=== PATIENT | male | born 1975 | race Caucasian/White ===

== ENCOUNTER 2018-10-30 20:19 | Emergency (ER) | payer MEDICAID ==
[~2018-10-30] VITALS: Ht 170.2 cm; Wt 77.1 kg
[2018-10-30 20:25] VITALS: BP_SYST 131
--- NOTE | 2018-10-30 21:29 | NUR ---
Patient to ER bed 2 to gown for evaluation. Side rails up. Report given to Tommie WATTS.
--- NOTE | 2018-10-30 22:00 | NUR ---
Dr. Hilliard bedside for Pt Eval
--- NOTE | 2018-10-30 22:10 | NUR ---
Pt BIB family to ED C/O gradually worsening redness and swelling to the left face cheek that developed over the past 2 days. Symptoms are moderate with no alleviating factors. The patient reports he slept on the floor 2 days ago and woke up with multiple insect bites on his left cheek and chin. No other injuries and or complaints noted. VSS no s/s of acute distress. Resting on gurney rails up
[2018-10-30] MEDS ORDERED: PIPERACILLIN/TAZO 3.375 GM in NS 50 ML IV ONE (22:15)
[2018-10-30] MEDS ORDERED: NACL 0.9% 1,000 ML IV ONE (22:15)
[2018-10-30] MEDS ORDERED: CLINDAMYCIN 600 mg/50mL D5W 50 ML IV ONE (22:15)
[2018-10-30] MEDS ORDERED: PIPERACILLIN/TAZOBACTAM 3.375 GM/VIAL (ZOSYN) IV ONE (22:30)
--- NOTE | 2018-10-30 22:52 | NUR ---
Pt taken to Radiology in stable condition
[2018-10-30 23:16] LABS: INR 0.9 (0.80-1.20); PROTHROMBIN TIME 9.1 SECS (9.5-12.5)
[2018-10-30 23:28] LABS: ALBUMIN 3.8 g/dL (3.4-4.8); CALCIUM 9.3 mg/dL (8.4-11.0); CREATININE 1.02 mg/dL (0.55-1.30); POTASSIUM 4.2 mmol/L (3.5-5.1); TOTAL BILIRUBIN 0.3 mg/dL (0.0-1.0)
[2018-10-30 23:44] LABS: BASOPHILS % (AUTO) 0.5 % (0.0-2.0); EOSINOPHILS # (AUTO) 0.1 K/uL (0.0-0.4); EOSINOPHILS % (AUTO) 1.7 % (0.0-4.0); HEMATOCRIT 46.9 % (36-54); HEMOGLOBIN 15.8 g/dL (14.0-18.0); LYMPHOCYTES # (AUTO) 2.2 K/uL (1.0-5.5); LYMPHOCYTES % (AUTO) 28.6 % (20.5-51.5); MEAN CORPUSCULAR HEMOGLOBIN 32 pg (27-31); MEAN CORPUSCULAR HGB CONC 34 % (32-36); MEAN CORPUSCULAR VOLUME 95 fL (79.0-98.0); MONOCYTES # (AUTO) 0.8 K/uL (0.0-1.0); MONOCYTES % (AUTO) 10.4 % (1.7-9.3); NEUTROPHILS # (AUTO) 4.6 K/uL (1.8-7.7); NEUTROPHILS % (AUTO) 58.8 % (40.0-70.0); PLATELET COUNT (AUTO) 220 K/uL (130-430); RED BLOOD CELL COUNT(AUTO) 4.93 MIL/uL (4.2-6.2); RED CELL DISTRIBUTION WIDTH 12.8 % (9.0-15.0); WHITE BLOOD COUNT (AUTO) 7.8 K/uL (4.8-10.8)
--- NOTE | 2018-10-31 | NUR ---
Dr. Hilliard bedside to Update Pt
[2018-10-31 00:35] VITALS: BP_SYST 131
--- NOTE | 2018-10-31 00:35 | NUR ---
Patient given written and verbal discharge instructions and verbalizes understanding. ER MD discussed with patient the results and treatment provided. Patient in stable condition. ID arm band removed. IV catheter removed intact and dressing applied, no active bleeding. Rx of Augumentin Flagyl given. Patient educated on pain management and to follow up with PMD. Pain Scale 0/10 Opportunity for questions provided and answered. Medication side effect fact sheet provided.
[2018-11-01] MEDS ORDERED: METR-154 PO (16:54)
[2018-11-01] MEDS ORDERED: AMOX-423 PO (16:55)
== END 2018-10-31 00:35 | disposition home or self-care (01) ==
LOC: SED 20:19
DX: H60.12 Cellulitis of left external ear (principal)
CPT/HCPCS: 36415; 70486; 80053; 83605; 85025; 85610; 85730; 87040; 93005; 96365; 96368; 99284; J2543; J3490; J7030

== ENCOUNTER 2018-11-01 12:46 | Inpatient (IN) | payer MEDICAID ==
[~2018-11-01] VITALS: Ht 170.2 cm; Wt 77.1 kg
[2018-11-01 13:13] VITALS: BP_SYST 140
[2018-11-01] MEDS ORDERED: cefTRIAXone 1 GM IVPB PREMIX 50 ML IV ONE (14:30)
[2018-11-01] MEDS ORDERED: MORPHINE 4 MG/ML INJ. SYRINGE IVP ONE (14:30)
[2018-11-01 14:50] LABS: BASOPHILS % (AUTO) 0.5 % (0.0-2.0); EOSINOPHILS # (AUTO) 0.1 K/uL (0.0-0.4); EOSINOPHILS % (AUTO) 1.6 % (0.0-4.0); HEMATOCRIT 47.4 % (36-54); HEMOGLOBIN 15.9 g/dL (14.0-18.0); LYMPHOCYTES # (AUTO) 2.2 K/uL (1.0-5.5); LYMPHOCYTES % (AUTO) 30.1 % (20.5-51.5); MEAN CORPUSCULAR HEMOGLOBIN 32 pg (27-31); MEAN CORPUSCULAR HGB CONC 34 % (32-36); MEAN CORPUSCULAR VOLUME 95 fL (79.0-98.0); MONOCYTES # (AUTO) 0.7 K/uL (0.0-1.0); MONOCYTES % (AUTO) 10.1 % (1.7-9.3); NEUTROPHILS # (AUTO) 4.3 K/uL (1.8-7.7); NEUTROPHILS % (AUTO) 57.7 % (40.0-70.0); PLATELET COUNT (AUTO) 225 K/uL (130-430); RED BLOOD CELL COUNT(AUTO) 5.02 MIL/uL (4.2-6.2); RED CELL DISTRIBUTION WIDTH 12.8 % (9.0-15.0); WHITE BLOOD COUNT (AUTO) 7.4 K/uL (4.8-10.8)
[2018-11-01 15:49] LABS: BILIRUBIN,URINE NEGATIVE (NEGATIVE); BLOOD, URINE NEGATIVE (NEGATIVE); CLARITY/URINE CLEAR (CLEAR); COLOR,URINE YELLOW (YELLOW); GLUCOSE,URINE NEGATIVE (NEGATIVE); KETONES,URINE NEGATIVE (NEGATIVE); LEUKOCYTE ESTERASE ,URINE NEGATIVE (NEGATIVE); NITRITE, URINE NEGATIVE (NEGATIVE); PH,URINE 6.5 (5.0-8.0); PROTEIN URINE NEGATIVE (NEGATIVE); UROBILINOGEN,URINE 0.2 (0.2-1.0)
[2018-11-01 15:49] LABS: CREATININE 0.87 mg/dL (0.55-1.30); POTASSIUM 4.1 mmol/L (3.5-5.1)
[2018-11-01 15:56] LABS: ALBUMIN 3.8 g/dL (3.4-4.8); TOTAL BILIRUBIN 0.2 mg/dL (0.0-1.0)
[2018-11-01] MEDS ORDERED: METR-154 PO (16:54)
[2018-11-01] MEDS ORDERED: AMOX-423 PO (16:55)
[2018-11-01 17:23] VITALS: BP_SYST 131
[2018-11-01] MEDS ORDERED: VANCOMYCIN HCL 1 GM/NS PREMIX 250 ML IV ONE ×2 (17:45)
[2018-11-01] MEDS ORDERED: ACETAMINOPHEN 325 MG TABLET PO PRN ×2 (17:45)
[2018-11-01 18:00] VITALS: BP_SYST 131
[2018-11-01 20:00] VITALS: BP_SYST 149
[2018-11-02 00:57] VITALS: BP_SYST 128
[2018-11-02] MEDS: HYDROcodone/ACETAMIN 5-325 MG TAB (NORCO/ VICODIN) PO PRN ×2 (01:37→20:26)
[2018-11-02 06:21] LABS: BASOPHILS % (AUTO) 0.5 % (0.0-2.0); EOSINOPHILS # (AUTO) 0.1 K/uL (0.0-0.4); EOSINOPHILS % (AUTO) 1.7 % (0.0-4.0); HEMATOCRIT 44.4 % (36-54); HEMOGLOBIN 15.1 g/dL (14.0-18.0); LYMPHOCYTES # (AUTO) 2.8 K/uL (1.0-5.5); LYMPHOCYTES % (AUTO) 36.7 % (20.5-51.5); MEAN CORPUSCULAR HEMOGLOBIN 32 pg (27-31); MEAN CORPUSCULAR HGB CONC 34 % (32-36); MEAN CORPUSCULAR VOLUME 95 fL (79.0-98.0); MONOCYTES # (AUTO) 0.8 K/uL (0.0-1.0); MONOCYTES % (AUTO) 10.9 % (1.7-9.3); NEUTROPHILS # (AUTO) 3.8 K/uL (1.8-7.7); NEUTROPHILS % (AUTO) 50.2 % (40.0-70.0); PLATELET COUNT (AUTO) 227 K/uL (130-430); RED BLOOD CELL COUNT(AUTO) 4.69 MIL/uL (4.2-6.2); RED CELL DISTRIBUTION WIDTH 12.6 % (9.0-15.0); WHITE BLOOD COUNT (AUTO) 7.6 K/uL (4.8-10.8)
[2018-11-02 06:26] LABS: CALCIUM 8.7 mg/dL (8.4-11.0); CREATININE 0.95 mg/dL (0.55-1.30)
[2018-11-02 07:59] VITALS: BP_SYST 126
[2018-11-02] MEDS: FAMOTIDINE 20 MG TABLET PO SCH (08:40)
[2018-11-02] MEDS: IBUPROFEN 400 MG TABLET PO PRN ×2 (08:41→22:33)
[2018-11-02] MEDS ORDERED: FAMOTIDINE 20 MG TABLET PO SCH (09:00)
[2018-11-02] MEDS ORDERED: PEG 400/HYPROMELLOSE/GLYCERIN 15 ML DROPS OP ONE (11:00)
[2018-11-02] MEDS ORDERED: ACYCLOVIR IV 500 MG in D5W 100 ML IV ONE (12:00)
[2018-11-02 12:30] VITALS: BP_SYST 122
[2018-11-02 12:59] VITALS: BP_SYST 126
[2018-11-02] MEDS: ceFAZolin SODIUM 1 GM in D5W 50 ML IV SCH ×2 (14:07→22:33)
[2018-11-02] MEDS: PEG 400/HYPROMELLOSE/GLYCERIN 15 ML DROPS OP SCH ×2 (17:53→23:09)
[2018-11-02 21:15] VITALS: BP_SYST 137
[2018-11-02] MEDS: ACYCLOVIR IV 500 MG in D5W 100 ML IV SCH (23:12)
[2018-11-03 01:58] VITALS: BP_SYST 130
[2018-11-03 06:07] LABS: VARICELLA ZOSTER IgG >4000 index (Immune >165)
[2018-11-03] MEDS: ceFAZolin SODIUM 1 GM in D5W 50 ML IV SCH ×2 (06:10→13:17)
[2018-11-03] MEDS: ACYCLOVIR IV 500 MG in D5W 100 ML IV SCH ×2 (06:48→13:26)
[2018-11-03 07:12] LABS: ANTI-STREPTOLYSIN O AB 60.8 IU/mL (0.0-200.0)
[2018-11-03 08:00] VITALS: BP_SYST 145
[2018-11-03] MEDS: FAMOTIDINE 20 MG TABLET PO SCH (08:45)
[2018-11-03] MEDS: PEG 400/HYPROMELLOSE/GLYCERIN 15 ML DROPS OP SCH ×2 (08:45→13:18)
[2018-11-03 12:56] VITALS: BP_SYST 131
[2018-11-03] MEDS: HYDROcodone/ACETAMIN 5-325 MG TAB (NORCO/ VICODIN) PO PRN (13:26)
[2018-11-03 15:53] VITALS: BP_SYST 137
[2018-11-03 17:00] VITALS: BP_SYST 139
== END 2018-11-03 16:25 | disposition home or self-care (01) | DRG 383 ==
LOC: SED 12:46 → SMU 16:17
PROVIDERS: ADMIT Internal Medicine; ATTEND Internal Medicine
DX: L03.211 Cellulitis of face (principal); B02.21 Postherpetic geniculate ganglionitis; B02.8 Zoster with other complications; L01.00 Impetigo, unspecified; L02.01 Cutaneous abscess of face
CPT/HCPCS: 36415; 71045; 80048; 80053; 81003; 83605; 85025; 86060; 86694; 86787; 87040-TC; 87086; 93005; J0133; J0690; J0696; J2270; J3370; J7060

== ENCOUNTER 2018-12-27 01:33 | Emergency (ER) | payer MEDICAID ==
[~2018-12-27] VITALS: Ht 170.2 cm; Wt 77.1 kg
[2018-12-27 01:40] VITALS: BP_SYST 144
--- NOTE | 2018-12-27 01:56 | NUR ---
Patient to ER bed 7 to gown for evaluation. Side rails up.
--- NOTE | 2018-12-27 02:05 | NUR ---
Dr. Desouza is at bedside speaking to pt.
--- NOTE | 2018-12-27 02:10 | NUR ---
Pt came to the ED for R eye redness and swelling. Reports discharge for the past 2 days. Denies severe pain, complaining of "discomfort." Denies n/v/d or fever. No other complaings/injuries noted. WIll cont. to monitor.
--- NOTE | 2018-12-27 02:11 | NUR ---
Dr. Desouza at bedside performing procedure with eye kit. Tolerated well. Will cont. to monitor.
[2018-12-27 02:47] VITALS: BP_SYST 144
--- NOTE | 2018-12-27 02:47 | NUR ---
Patient given written and verbal discharge instructions and verbalizes understanding. ER MD Dr. Desouza discussed with patient the results and treatment provided. Patient in stable condition. ID arm band removed. Rx of sulfacetamide, keflex, and patanol given. Patient educated on pain management and to follow up with PMD. Pain Scale 0/10. Opportunity for questions provided and answered. Medication side effect fact sheet provided.
== END 2018-12-27 02:47 | disposition home or self-care (01) ==
LOC: SED 01:33
DX: L03.213 Periorbital cellulitis (principal); H10.9 Unspecified conjunctivitis
CPT/HCPCS: 99283

== ENCOUNTER 2019-10-03 23:11 | Emergency (ER) | payer MEDICAID ==
[~2019-10-03] VITALS: Ht 170.2 cm; Wt 79.4 kg
[2019-10-03 23:25] VITALS: BP_SYST 101
[2019-10-04] MEDS ORDERED: LIDOCAINE 1% 10 MG/ML, 20 ML MDV INJ ONE (00:45)
[2019-10-04] MEDS ORDERED: NACL 0.9% 1,000 ML IV ONE (01:15)
[2019-10-04] MEDS ORDERED: MORPHINE 4 MG/ML INJ. SYRINGE IVP ONE (01:15)
[2019-10-04 01:54] LABS: BASOPHILS # (AUTO) 0.1 K/uL (0.0-0.2); BASOPHILS % (AUTO) 0.5 % (0.0-2.0); EOSINOPHILS # (AUTO) 0.1 K/uL (0.0-0.4); EOSINOPHILS % (AUTO) 0.7 % (0.0-4.0); HEMATOCRIT 45.1 % (36-54); LYMPHOCYTES # (AUTO) 3.1 K/uL (1.0-5.5); LYMPHOCYTES % (AUTO) 24.5 % (20.5-51.5); MEAN CORPUSCULAR HEMOGLOBIN 31 pg (27-31); MEAN CORPUSCULAR HGB CONC 33 % (32-36); MEAN CORPUSCULAR VOLUME 94 fL (79.0-98.0); MONOCYTES # (AUTO) 1.2 K/uL (0.0-1.0); MONOCYTES % (AUTO) 9.4 % (1.7-9.3); NEUTROPHILS # (AUTO) 8.1 K/uL (1.8-7.7); NEUTROPHILS % (AUTO) 64.9 % (40.0-70.0); PLATELET COUNT (AUTO) 269 K/uL (130-430); RED BLOOD CELL COUNT(AUTO) 4.81 MIL/uL (4.2-6.2); RED CELL DISTRIBUTION WIDTH 12.6 % (9.0-15.0); WHITE BLOOD COUNT (AUTO) 12.5 K/uL (4.8-10.8)
[2019-10-04 02:03] LABS: CALCIUM 9.5 mg/dL (8.4-11.0); CREATININE 0.98 mg/dL (0.55-1.30); POTASSIUM 3.9 mmol/L (3.5-5.1)
[2019-10-04] MEDS ORDERED: IOHEXOL 100 ML IV ONE (02:04)
[2019-10-04 03:31] VITALS: BP_SYST 115
== END 2019-10-04 03:31 | disposition home or self-care (01) ==
LOC: SED 23:11
DX: K61.0 Anal abscess (principal)
CPT/HCPCS: 36415; 46050; 74177; 80048; 83605; 85025; 96361; 96374; 99284; J7030; J2001; J2270; Q9967

== ENCOUNTER 2019-10-05 23:30 | Emergency (ER) | payer MEDICAID ==
[~2019-10-05] VITALS: Ht 170.2 cm; Wt 79.4 kg
[2019-10-05 23:35] VITALS: BP_SYST 152
[2019-10-06] MEDS ORDERED: cefTRIAXone 1 GM in LIDOCAINE 1%, 20 ML MDV 2.1 ML IM ONE (01:00)
[2019-10-06] MEDS ORDERED: MORPHINE 4 MG/ML INJ. SYRINGE IM ONE (01:00)
[2019-10-06 02:27] VITALS: BP_SYST 133
== END 2019-10-06 02:27 | disposition home or self-care (01) ==
LOC: SED 23:30
DX: L03.317 Cellulitis of buttock (principal)
CPT/HCPCS: 96372; 99284; J0696; J2001; J2270

== ENCOUNTER 2019-10-08 21:58 | Emergency (ER) | payer MEDICAID ==
[~2019-10-08] VITALS: Ht 170.2 cm; Wt 79.4 kg
[2019-10-08 22:30] VITALS: BP_SYST 129
== END 2019-10-09 02:35 | disposition left against medical advice (07) ==
LOC: SED 21:58
DX: K62.89 Other specified diseases of anus and rectum (principal); Z53.21 Procedure and treatment not carried out due to patient leaving prior to being seen by health care provider

== ENCOUNTER 2019-10-09 12:46 | Inpatient (IN) | payer MEDICAID, SELFPAY ==
[~2019-10-09] VITALS: Ht 170.2 cm; Wt 79.4 kg
[2019-10-09 13:03] VITALS: BP_SYST 123
[2019-10-09] MEDS ORDERED: VANCOMYCIN HCL 1,000 MG in D5W 250 ML IV ONE (13:15)
[2019-10-09] MEDS ORDERED: PIPERACILLIN/TAZO 3.38 GM in D5W 50 ML IV ONE (13:15)
[2019-10-09] MEDS ORDERED: fentaNYL CITRATE/PF 100 MCG/2 ML AMP IVP ONE (13:15)
[2019-10-09 13:52] LABS: BASOPHILS # (AUTO) 0.1 K/uL (0.0-0.2); BASOPHILS % (AUTO) 0.4 % (0.0-2.0); EOSINOPHILS # (AUTO) 0.1 K/uL (0.0-0.4); EOSINOPHILS % (AUTO) 0.4 % (0.0-4.0); HEMATOCRIT 40.6 % (36-54); HEMOGLOBIN 13.2 g/dL (14.0-18.0); LYMPHOCYTES # (AUTO) 2.4 K/uL (1.0-5.5); MEAN CORPUSCULAR HEMOGLOBIN 30 pg (27-31); MEAN CORPUSCULAR HGB CONC 33 % (32-36); MEAN CORPUSCULAR VOLUME 93 fL (79.0-98.0); MONOCYTES # (AUTO) 1.3 K/uL (0.0-1.0); MONOCYTES % (AUTO) 6.3 % (1.7-9.3); NEUTROPHILS # (AUTO) 16.2 K/uL (1.8-7.7); NEUTROPHILS % (AUTO) 80.9 % (40.0-70.0); PLATELET COUNT (AUTO) 322 K/uL (130-430); RED BLOOD CELL COUNT(AUTO) 4.36 MIL/uL (4.2-6.2); RED CELL DISTRIBUTION WIDTH 12.8 % (9.0-15.0)
[2019-10-09 14:15] LABS: PROTHROMBIN TIME 9.8 SECS (9.5-12.5)
[2019-10-09] MEDS ORDERED: PIPERACILLIN/TAZOBACTAM 3.375 GM/VIAL (ZOSYN) IV ONE (14:27)
[2019-10-09] MEDS ORDERED: VANCOMYCIN HCL 1000 MG/VIAL IV ONE (14:28)
[2019-10-09 14:48] LABS: CALCIUM 9.1 mg/dL (8.4-11.0); CREATININE 1.07 mg/dL (0.55-1.30); POTASSIUM 4.1 mmol/L (3.5-5.1)
[2019-10-09 14:53] LABS: ALBUMIN 2.7 g/dL (3.4-4.8); TOTAL BILIRUBIN 0.2 mg/dL (0.0-1.0)
[2019-10-09 15:09] LABS: C-REACTIVE PROTEIN QUANT 32.1 mg/dL (0-0.5)
[2019-10-09] MEDS ORDERED: NACL 0.9% 1,000 ML IV ONE (16:45)
[2019-10-09] MEDS ORDERED: MORPHINE 4 MG/ML INJ. SYRINGE IVP ONE (17:00)
[2019-10-09] MEDS ORDERED: ACETAMINOPHEN 325 MG TABLET PO PRN (17:15)
[2019-10-09] MEDS ORDERED: ONDANSETRON HCL 4 MG/2 ML VIAL IVP PRN (17:15)
[2019-10-09] MEDS ORDERED: ZOLPIDEM TARTRATE 5 MG TABLET PO PRN (17:15)
[2019-10-09] MEDS ORDERED: DOCUSATE SODIUM 100 MG CAPSULE PO PRN (17:15)
[2019-10-09] MEDS ORDERED: MAGNESIUM SULFATE 50 ML IV PRN (17:15)
[2019-10-09] MEDS ORDERED: LORazepam 2 MG/ML VIAL IVP PRN (17:15)
[2019-10-09] MEDS ORDERED: POTASSIUM CHLORIDE 20 MEQ TAB.PRT.SR PO PRN (17:15)
[2019-10-09] MEDS ORDERED: MUPIROCIN 2% TOPICAL OINTMENT 22 GM NS PRN (17:15)
[2019-10-09] MEDS ORDERED: D5NS 1,000 ML IV SCH (17:30)
[2019-10-09] MEDS ORDERED: ACETAMINOPHEN 500 MG TABLET PO ONE (17:30)
[2019-10-09] MEDS ORDERED: ACETAMINOPHEN 500 MG TABLET ONE (17:42)
[2019-10-09 19:10] VITALS: BP_SYST 115
[2019-10-09] MEDS: MORPHINE 2 MG/ML INJ. SYRINGE IVP PRN (20:23)
[2019-10-09] MEDS ORDERED: SEVOFLURANE 15 MIN GAS INH ONE (23:20)
[2019-10-09] MEDS ORDERED: PROPOFOL 200MG/ 20ML VIAL (DIPRIVAN) IV ONE (23:20)
[2019-10-09] MEDS ORDERED: KETOROLAC TROMETHAMINE 30 MG VIAL IVP ONE (23:20)
[2019-10-09] MEDS ORDERED: LIDOCAINE 1% 10 MG/ML, 20 ML MDV INJ ONE (23:20)
[2019-10-09] MEDS ORDERED: NEOSTIGMINE METHYLSULFATE 1 MG/ML, 10 ML VIAL IVP ONE (23:20)
[2019-10-09] MEDS ORDERED: METOCLOPRAMIDE HCL 10 MG/2 ML VIAL IVP ONE (23:20)
[2019-10-09] MEDS ORDERED: CEFAZOLIN 2 GM IVPB PREMIX 50 ML IV ONE (23:20)
[2019-10-09] MEDS ORDERED: fentaNYL CITRATE 250 MCG/5 ML AMP IV ONE (23:20)
[2019-10-09] MEDS ORDERED: NS IRRIG SOLN 1000 ML IR ONE (23:20)
[2019-10-09] MEDS ORDERED: ISOFLURANE 15 MIN GAS INH ONE (23:20)
[2019-10-09] MEDS ORDERED: D5/0.45 NS 1,000 ML IV.SOLN IV ONE (23:20)
[2019-10-09] MEDS ORDERED: ONDANSETRON HCL 4 MG/2 ML VIAL IVP ONE (23:20)
[2019-10-09] MEDS ORDERED: SUCCINYLCHOLINE CHLORIDE 20 MG/ML(QUELICIN) IVP ONE (23:20)
[2019-10-10] MEDS ORDERED: 0.45% NACL 1,000 ML IV SCH (00:13)
[2019-10-10] MEDS ORDERED: ONDANSETRON HCL 4 MG/2 ML VIAL IVP PRN (00:15)
[2019-10-10] MEDS ORDERED: HYDROmorphone 1 MG INJ. 1 MG/ML AMPUL IVP PRN (00:15)
[2019-10-10] MEDS ORDERED: KETOROLAC TROMETHAMINE 30 MG VIAL IVP PRN ×3 (00:15)
[2019-10-10] MEDS ORDERED: D5NS 1,000 ML IV SCH (00:30)
[2019-10-10] MEDS: MORPHINE 2 MG/ML INJ. SYRINGE IVP PRN ×3 (04:20→15:26)
[2019-10-10 06:37] LABS: BASOPHILS % (AUTO) 0.2 % (0.0-2.0); EOSINOPHILS % (AUTO) 0.3 % (0.0-4.0); HEMATOCRIT 37.4 % (36-54); HEMOGLOBIN 12.4 g/dL (14.0-18.0); LYMPHOCYTES # (AUTO) 1.7 K/uL (1.0-5.5); MEAN CORPUSCULAR HEMOGLOBIN 31 pg (27-31); MEAN CORPUSCULAR HGB CONC 33 % (32-36); MEAN CORPUSCULAR VOLUME 93 fL (79.0-98.0); MONOCYTES # (AUTO) 1.3 K/uL (0.0-1.0); MONOCYTES % (AUTO) 8.4 % (1.7-9.3); NEUTROPHILS # (AUTO) 12.1 K/uL (1.8-7.7); NEUTROPHILS % (AUTO) 80.1 % (40.0-70.0); PLATELET COUNT (AUTO) 294 K/uL (130-430); RED BLOOD CELL COUNT(AUTO) 4.03 MIL/uL (4.2-6.2); RED CELL DISTRIBUTION WIDTH 12.6 % (9.0-15.0); WHITE BLOOD COUNT (AUTO) 15.1 K/uL (4.8-10.8)
[2019-10-10 07:46] LABS: CALCIUM 8.7 mg/dL (8.4-11.0); CREATININE 0.9 mg/dL (0.55-1.30); POTASSIUM 3.7 mmol/L (3.5-5.1)
[2019-10-10 08:00] VITALS: BP_SYST 120
[2019-10-10] MEDS: DOCUSATE SODIUM 100 MG CAPSULE PO SCH ×2 (08:48→20:38)
[2019-10-10 11:33] VITALS: BP_SYST 106
[2019-10-10] MEDS ORDERED: VANCOMYCIN HCL 1,000 MG in NS 250 ML IV SCH (14:00)
[2019-10-10 16:02] VITALS: BP_SYST 118
[2019-10-10] MEDS: HYDROcodone/ACETAMIN 5-325 MG TAB (NORCO/ VICODIN) PO PRN (20:38)
[2019-10-11 01:06] VITALS: BP_SYST 109
[2019-10-11] MEDS: MORPHINE 2 MG/ML INJ. SYRINGE IVP PRN (01:32)
[2019-10-11 07:05] LABS: BASOPHILS % (AUTO) 0.2 % (0.0-2.0); EOSINOPHILS # (AUTO) 0.1 K/uL (0.0-0.4); EOSINOPHILS % (AUTO) 1.4 % (0.0-4.0); HEMATOCRIT 39.9 % (36-54); HEMOGLOBIN 13.3 g/dL (14.0-18.0); LYMPHOCYTES # (AUTO) 2.5 K/uL (1.0-5.5); LYMPHOCYTES % (AUTO) 28.4 % (20.5-51.5); MEAN CORPUSCULAR HEMOGLOBIN 31 pg (27-31); MEAN CORPUSCULAR HGB CONC 33 % (32-36); MEAN CORPUSCULAR VOLUME 93 fL (79.0-98.0); MONOCYTES # (AUTO) 0.9 K/uL (0.0-1.0); MONOCYTES % (AUTO) 10.9 % (1.7-9.3); NEUTROPHILS # (AUTO) 5.1 K/uL (1.8-7.7); NEUTROPHILS % (AUTO) 59.1 % (40.0-70.0); PLATELET COUNT (AUTO) 329 K/uL (130-430); RED BLOOD CELL COUNT(AUTO) 4.31 MIL/uL (4.2-6.2); RED CELL DISTRIBUTION WIDTH 12.7 % (9.0-15.0); WHITE BLOOD COUNT (AUTO) 8.6 K/uL (4.8-10.8)
[2019-10-11 07:31] LABS: CALCIUM 9.1 mg/dL (8.4-11.0); CREATININE 0.93 mg/dL (0.55-1.30); POTASSIUM 3.2 mmol/L (3.5-5.1)
[2019-10-11 08:00] VITALS: BP_SYST 107
[2019-10-11] MEDS: DOCUSATE SODIUM 100 MG CAPSULE PO SCH (08:59)
[2019-10-11] MEDS: HYDROcodone/ACETAMIN 5-325 MG TAB (NORCO/ VICODIN) PO PRN (09:00)
[2019-10-11 12:01] VITALS: BP_SYST 104
[2019-10-11] MEDS ORDERED: AMOX-426 PO ×2 (12:15→13:06)
[2019-10-11 14:07] VITALS: BP_SYST 107
[2019-10-11] MEDS ORDERED: HYDR-4272 PO (14:14)
[2019-10-11 16:31] VITALS: BP_SYST 110
== END 2019-10-11 14:30 | disposition home or self-care (01) | DRG 720 ==
LOC: SED 12:46 → SMU 17:14
PROVIDERS: ADMIT General Practice; ATTEND General Practice
PROC: 0JBB0ZZ Excision of Perineum Subcutaneous Tissue and Fascia, Open Approach (ICD-10-PCS; principal; 2019-10-11)
DX: A41.9 Sepsis, unspecified organism (principal); E44.0 Moderate protein-calorie malnutrition; L02.215 Cutaneous abscess of perineum; K62.89 Other specified diseases of anus and rectum; F17.210 Nicotine dependence, cigarettes, uncomplicated; L22 Diaper dermatitis; Z68.27 Body mass index [BMI] 27.0-27.9, adult; Z79.899 Other long term (current) drug therapy; Z03.818 Encounter for observation for suspected exposure to other biological agents ruled out; L02.31 Cutaneous abscess of buttock
CPT/HCPCS: 36415; 72193-TC; 80048; 80053; 83036; 83605; 83735-TC; 85025; 85610-TC; 85730-TC; 86140; 87040-TC; 87070-TC; 87075-TC; 87081; 87186-TC; 93005; 96361; 96365; 96375; 99285; J0330; J0690; J1885; J2001; J2270; J2405; J2543; J2704; J2710; J2765; J3010; J3370; J7042; J7050; U0003-CS

== ENCOUNTER 2019-10-16 21:00 | Emergency (ER) | payer MEDICAID, SELFPAY ==
[~2019-10-16] VITALS: Ht 170.2 cm; Wt 72.6 kg
[~2019-10-16 21:00] MED LIST: AMOX-426 PO; HYDR-4272 PO
[2019-10-16 21:09] VITALS: BP_SYST 121
--- NOTE | 2019-10-16 21:12 | NUR ---
Patient to ER bed 03 to gown for evaluation. Side rails up.
--- NOTE | 2019-10-16 21:15 | NUR ---
ER at bedside examining patient.
--- NOTE | 2019-10-16 21:18 | NUR ---
Pt here for wound check from abscess near rectum. Pt here on 10/09/19 for abscess. Pt denies Fever, d/c, CP/CHILL, n/v/d.
--- NOTE | 2019-10-16 21:30 | NUR ---
Wound dressing applied, cleansed with normals saline. Patient tolerated procedure well.
[2019-10-16 21:50] VITALS: BP_SYST 121
--- NOTE | 2019-10-16 21:50 | NUR ---
Patient given written and verbal discharge instructions and verbalizes understanding. ER MD discussed with patient the results and treatment provided. Patient in stable condition. ID arm band removed. Rx of Augmentin. Ibuprofen given. Patient educated on pain management and to follow up with PMD. Opportunity for questions provided and answered. Medication side effect fact sheet provided.
== END 2019-10-16 21:50 | disposition home or self-care (01) ==
LOC: SED 21:00
DX: Z48.00 Encounter for change or removal of nonsurgical wound dressing (principal)
CPT/HCPCS: 99283

== ENCOUNTER 2023-07-27 | Inpatient (IN) | payer MEDICAID ==
[~2023-07-27] VITALS: Ht 170.2 cm; Wt 88.0 kg
[2023-07-27 00:09] VITALS: BP_SYST 137; PULSE 85; RESP 18; TEMP 98.4; O2SAT 100
[2023-07-27] MEDS ORDERED: LIDOCAINE 1% 10 MG/ML, 20 ML MDV INJ ONE (00:45)
[2023-07-27] MEDS: ONDANSETRON HCL 4 MG/2 ML VIAL IVP ONE (00:58)
[2023-07-27] MEDS: MORPHINE 4 MG INJ. 4 MG/ML VIAL IVP ONE ×2 (01:01→05:23)
[2023-07-27] MEDS: NACL 0.9% 1,000 ML IV ONE (01:46)
[2023-07-27 01:49] LABS: BASOPHILS # (AUTO) 0.2 K/uL (0.0-0.2); BASOPHILS % (AUTO) 2.1 % (0.0-2.0); EOSINOPHILS # (AUTO) 0.1 K/uL (0.0-0.4); EOSINOPHILS % (AUTO) 0.6 % (0.0-4.0); HEMATOCRIT 42.8 % (36-54); HEMOGLOBIN 14.7 g/dL (14.0-18.0); LYMPHOCYTES # (AUTO) 1.3 K/uL (1.0-5.5); LYMPHOCYTES % (AUTO) 12.4 % (20.5-51.5); MEAN CORPUSCULAR HEMOGLOBIN 31 pg (27-31); MEAN CORPUSCULAR HGB CONC 34 % (32-36); MEAN CORPUSCULAR VOLUME 91 fL (79.0-98.0); MONOCYTES # (AUTO) 0.7 K/uL (0.0-1.0); MONOCYTES % (AUTO) 6.4 % (1.7-9.3); NEUTROPHILS # (AUTO) 8.3 K/uL (1.8-7.7); NEUTROPHILS % (AUTO) 78.5 % (40.0-70.0); PLATELET COUNT (AUTO) 261 K/uL (130-430); RED BLOOD CELL COUNT(AUTO) 4.69 MIL/uL (4.2-6.2); RED CELL DISTRIBUTION WIDTH 12.9 % (9.0-15.0); WHITE BLOOD COUNT (AUTO) 10.5 K/uL (4.8-10.8)
[2023-07-27 02:05] LABS: CALCIUM 8.9 mg/dL (8.4-11.0); CREATININE 0.82 mg/dL (0.55-1.30); POTASSIUM 4.2 mmol/L (3.5-5.1)
[2023-07-27 02:38] LABS: BILIRUBIN,URINE NEGATIVE (NEGATIVE); BLOOD, URINE NEGATIVE (NEGATIVE); CLARITY/URINE CLEAR (CLEAR); COLOR,URINE YELLOW (YELLOW); GLUCOSE,URINE NEGATIVE (NEGATIVE); KETONES,URINE NEGATIVE (NEGATIVE); LEUKOCYTE ESTERASE ,URINE NEGATIVE (NEGATIVE); NITRITE, URINE NEGATIVE (NEGATIVE); UROBILINOGEN,URINE 0.2 (0.2-1.0)
[2023-07-27 03:05] LABS: PROTEIN URINE NEGATIVE (NEGATIVE)
[2023-07-27] MEDS ORDERED: PIPERACILLIN/TAZOBACTAM 3.375 GM/VIAL (ZOSYN) IV ONE (06:39)
[2023-07-27] MEDS: PIPERACILLIN/TAZO 3.375 GM in NS 50 ML IV ONE (06:48)
[2023-07-27] MEDS: KETOROLAC TROMETHAMINE 30 MG VIAL IVP ONE (09:01)
[2023-07-27 15:02] VITALS: BP_SYST 115; PULSE 84; RESP 18; TEMP 98.2; O2SAT 97
[2023-07-27] MEDS ORDERED: HYDROcodone/ACETAMIN 5-325 MG TAB (NORCO/ VICODIN) PO PRN (15:30)
[2023-07-27] MEDS ORDERED: ACETAMINOPHEN 325 MG TABLET PO PRN ×2 (15:30)
[2023-07-27] MEDS: HYDROcodone/ACETAMIN 10-325 MG TAB PO PRN (15:38)
[2023-07-27 16:00] VITALS: BP_SYST 115; PULSE 84; RESP 18; TEMP 98.2; O2SAT 98
[2023-07-27] MEDS ORDERED: MORPHINE 2 MG/ML INJ. SYRINGE IVP PRN (16:00)
[2023-07-27] MEDS ORDERED: NALOXONE HCL 0.4 MG/ML AMP (NARCAN) IVP PRN ×2 (16:00)
[2023-07-27] MEDS: LACTULOSE 20 GM/30 ML UDC PO ONE (16:55)
[2023-07-27] MEDS: 0.45% NACL 1,000 ML IV SCH (17:15)
[2023-07-27 19:41] LABS: PROTHROMBIN TIME 10.5 SECS (9.5-12.5)
[2023-07-27 20:15] VITALS: BP_SYST 118; PULSE 83; RESP 18; TEMP 98.4; O2SAT 98
[2023-07-27 20:30] VITALS: O2SAT 98
[2023-07-27] MEDS: LACTULOSE 20 GM/30 ML UDC PO SCH (21:28)
[2023-07-27] MEDS: MORPHINE 2 MG/ML INJ. SYRINGE IVP PRN (21:30)
[2023-07-27] MEDS: PIPERACILLIN/TAZO 3.375 GM in D5W 50 ML IV SCH (21:30)
[2023-07-28 00:30] VITALS: BP_SYST 127; PULSE 63; RESP 18; TEMP 98.1; O2SAT 98
[2023-07-28 05:46] LABS: BASOPHILS % (AUTO) 0.3 % (0.0-2.0); EOSINOPHILS % (AUTO) 0.3 % (0.0-4.0); HEMATOCRIT 39.7 % (36-54); HEMOGLOBIN 13.7 g/dL (14.0-18.0); LYMPHOCYTES # (AUTO) 2.1 K/uL (1.0-5.5); LYMPHOCYTES % (AUTO) 20.2 % (20.5-51.5); MEAN CORPUSCULAR HEMOGLOBIN 31 pg (27-31); MEAN CORPUSCULAR HGB CONC 35 % (32-36); MEAN CORPUSCULAR VOLUME 91 fL (79.0-98.0); MONOCYTES # (AUTO) 1.1 K/uL (0.0-1.0); MONOCYTES % (AUTO) 10.3 % (1.7-9.3); NEUTROPHILS # (AUTO) 7.3 K/uL (1.8-7.7); NEUTROPHILS % (AUTO) 68.9 % (40.0-70.0); PLATELET COUNT (AUTO) 263 K/uL (130-430); RED BLOOD CELL COUNT(AUTO) 4.38 MIL/uL (4.2-6.2); RED CELL DISTRIBUTION WIDTH 12.8 % (9.0-15.0); WHITE BLOOD COUNT (AUTO) 10.6 K/uL (4.8-10.8)
[2023-07-28 06:15] LABS: CALCIUM 8.7 mg/dL (8.4-11.0); CREATININE 0.96 mg/dL (0.55-1.30); POTASSIUM 3.6 mmol/L (3.5-5.1)
[2023-07-28 08:00] VITALS: BP_SYST 106; PULSE 77; RESP 18; TEMP 97.6; O2SAT 99
[2023-07-28] MEDS ORDERED: LORazepam 2 MG/ML VIAL IVP PRN (18:15)
[2023-07-28] MEDS ORDERED: MORPHINE 2 MG/ML INJ. SYRINGE IVP PRN (18:15)
[2023-07-28] MEDS ORDERED: ONDANSETRON HCL 4 MG/2 ML VIAL IVP PRN (18:15)
[2023-07-28 20:00] VITALS: BP_SYST 115; PULSE 75; RESP 16; TEMP 98.3; O2SAT 94
== END 2023-07-28 20:00 | disposition short-term general hospital (02) | DRG 254 ==
LOC: SED → SMU 14:29
PROVIDERS: ADMIT Preventive Medicine Preventive Medicine/Occupational Environmental Medicine; ATTEND Preventive Medicine Preventive Medicine/Occupational Environmental Medicine
DX: K61.1 Rectal abscess (principal); R65.10 Systemic inflammatory response syndrome (SIRS) of non-infectious origin without acute organ dysfunction; K59.00 Constipation, unspecified; L03.317 Cellulitis of buttock; Z20.822 Contact with and (suspected) exposure to COVID-19; Z79.899 Other long term (current) drug therapy
CPT/HCPCS: 36415; 71045; 80048; 81001; 81003; 85025; 85610; 85730; 86886; 86900; 86901; 87040; 87081; 99285; J1885; J2001; J2270; J2405; J2543; J7060; Q9967